=== PATIENT | male | born 1990 | race Caucasian/White ===

== ENCOUNTER → 2023-03-11 | Outpatient (CLI) | payer OTHER ==
[~2023-03-11] MED LIST: AMOX500 PO; CEPH500 PO; CLON1 PO; CYCL10 PO; Diclofenac Sodi50 MG; HYDACE5 PO; HYDACE5325 PO; IBUP600 PO; IBUP800 PO; Norco 5-325 Ta1 EACH PO; RXHYDACE PO; TRAM50 PO
== END | disposition home or self-care (01) ==
LOC: LAB 19:22 → LAB SHORT 19:22
DX: R39.9 Unspecified symptoms and signs involving the genitourinary system (principal)
CPT/HCPCS: 87086